=== PATIENT | female | born 1960 | race Caucasian/White ===

== ENCOUNTER 2023-04-10 16:44 | Emergency (ER) | payer OTHER ==
[2023-04-10 16:57] VITALS: BP 140/80; O2SAT 99
[2023-04-10] MEDS ORDERED: predniSONE 20 MG TABLET PO STA (17:08)
[2023-04-10] MEDS ORDERED: EPINEPHrine 1 MG/ML AMP IM STA (17:08)
[2023-04-10] MEDS ORDERED: FAMOTIDINE 20 MG TABLET PO STA (17:08)
--- NOTE | 2023-04-10 17:12 | ED Physician Documentation ---
PD HPI SKIN - Stated complaint Stated Complaint: INSECT STING - Chief complaint Chief Complaint: Wound - History obtained from History obtained from: Patient - Additional information Additional information: 62-year-old woman was playing pickle ball and took a sip from her orange soda which had a hornet in it. She was stung on the left upper lip and this happened just prior to arrival. She developed immediate swelling in the area but denies hives, other swelling, throat pain, nausea, or shortness of breath or wheezing. She took 2 Benadryl prior to arrival. PD PAST MEDICAL HISTORY - Present Medications Home Medications: Ambulatory Orders Medication Instructions Recorded Confirmed Famotidine [Pepcid] 20 mg PO BID #10 tablet 04/10/23 predniSONE [Deltasone] 60 mg PO DAILY 3 Days #9 tablet 04/10/23 - Allergies Allergies/Adverse Reactions: Allergies Allergy/AdvReac Type Severity Reaction Status Date / Time Sulfa (Sulfonamide Allergy Hives Verified 04/10/23 16:51 Antibiotics) PD ED PE NORMAL - Vitals Vital signs reviewed: Yes - General General: Alert and oriented X 3, No acute distress - HEENT HEENT: Other (Significant angioedema of the upper lip, no retropharyngeal angioedema or lower lip angioedema or other generalized angioedema.) - Derm Derm: No rash - Neuro Neuro: Alert and oriented X 3, Normal speech Results - Vitals Vitals: Vital Signs - 24 hr 04/10/23 16:51 Temperature 36.6 C Heart Rate 82 Respiratory 16 Rate Blood Pressure 140/80 H O2 Saturation 99 Oxygen O2 Source Room air PD Medical Decision Making - ED course ED course: She has a localized but significant allergic reaction of the upper lip to a hymenoptera sting but without evidence otherwise of anaphylaxis. Given the location intramuscular epinephrine was still ordered. She had Benadryl prior to arrival and we will also add Pepcid and prednisone. Departure - Departure Disposition: 01 Home, Self Care Clinical Impression: Hymenoptera sting Angioedema of lips Qualifiers: Encounter type: initial encounter Qualified Code(s): T78.3XXA - Angioneurotic edema, initial encounter Condition: Good Instructions: ED Bite Sting Insect Local Allergic React Prescriptions: predniSONE [Deltasone] 60 mg PO DAILY 3 Days #9 tablet Famotidine [Pepcid] 20 mg PO BID #10 tablet Comments: I sent your prescriptions electronically to [facility] in [place]. You can continue to take Benadryl [id number] as needed per package instructions. To this I am adding prednisone and Pepcid. You did receive an injection of epinephrine here which should help with the swelling immediately as well. We still expect some level of swelling over the next few days. You can use ice or cool compresses. Return if worse.
== END 2023-04-10 17:52 | disposition home or self-care (01) ==
LOC: ED 16:44
DX: T63.451A Toxic effect of venom of hornets, accidental (unintentional), initial encounter (principal); T78.3XXA Angioneurotic edema, initial encounter
CPT/HCPCS: 96372; 99283; A9270; J7512